=== PATIENT | female | born 1965 | race Caucasian/White ===

== ENCOUNTER → 2019-05-11 14:04 | Outpatient (CLI) | payer OTHER, SELFPAY ==
--- NOTE | ~2019-05-11 | DEXA_ITS ---
Bone Density Report Name: Vivian Marcos Age: 53 Sex: Female Ethnicity: White Date of : 1965 Indication: postmenopausal; screening for osteoporosis; Referring Provider: Mathieu, Verna Study: Bone densitometry was performed. Exam Date: May 11, 2019 Accession number: [id number] Bone Density: Region BMD T-score Z-score Classification AP Spine (L1-L4) 1.169 1.1 2.0 Normal Femoral Neck (Left) 0.857 0.1 0.9 Normal Total Hip (Left) 1.013 0.6 1.1 Normal Femoral Neck (Right) 0.838 -0.1 0.8 Normal Total Hip (Right) 0.974 0.3 0.8 Normal Total Hip Mean 0.994 0.5 1.0 Normal World Health Organization criteria for BMD impression classify patients as: Normal (T-score at or above -1.0), Osteopenia (T-score between -1.0 and -2.5), or Osteoporosis (T-score at or below -2.5). 10-year Fracture Risk: FRAX not reported because: All T-scores for Spine Total, Hip Total, Femoral Neck at or above -1.0 Clinical Information Provided by Patient: Has used the following medications: Vitamin D Patient maximum height was 62.25 Menopause Age: 42 Drinks caffeinated beverages Onset of menses at age 15 Number of children 2 Impression: The patient has normal bone mass. Discussion: BONE DENSITY IS ABOVE THE MINIMUM DESIRABLE LEVEL AT ALL SKELETAL SITES TESTED. This patient?s bone mineral density is above the minimum desirable level (T-score -1.0 or better) at all sites measured. The patient should follow a healthful lifestyle (good nutrition with adequate calcium and vitamin D, and appropriate weight-bearing exercise). Follow-Up: Consider repeating this study in 5 years or sooner if there is some new clinical indication. Reported by: IGNACIO on 05/11/2019 2:49:00 PM. Reviewed, dictated and finalized at location A. [facility]
--- NOTE | ~2019-05-11 | MM_ITS ---
EXAMINATION: MM screening wes BI w lori HISTORY: Screening mammogram TECHNIQUE: Craniocaudal and mediolateral oblique 3-D tomosynthesis images were obtained and synthetic 2-D images were generated. CAD analysis was submitted and interpreted. COMPARISON: 02/06/2018 BREAST PARENCHYMAL COMPOSITION: There are scattered areas of fibroglandular density. FINDINGS: There is no evidence of suspicious mass, calcification, or architectural distortion to sugg est malignancy in either breast. There has been no suspicious interval change. IMPRESSION: 1. No mammographic evidence of malignancy. 2. Recommend routine screening mammography in one year. BI-RADS Category 1: Negative Reviewed, dictated and finalized at location A.
== END ==
PROVIDERS: PCP Family Medicine; Visit Provider Nurse Practitioner Family
DX: Z12.31 Encounter for screening mammogram for malignant neoplasm of breast (principal); Z78.0 Asymptomatic menopausal state
CPT/HCPCS: 77063; 77067; 77080

== ENCOUNTER 2019-12-21 06:44 | Outpatient (NON) | payer OTHER, SELFPAY ==
[2019-12-21 17:45] LABS: SARS-CoV-2 RNA PCR Positive
== END 2019-12-21 06:45 ==
PROVIDERS: PCP Family Medicine; Visit Provider Family Medicine
DX: U07.1 COVID-19 (principal)
CPT/HCPCS: 87635; C9803; U0003

== ENCOUNTER → 2020-06-05 10:38 | Outpatient (CLI) | payer OTHER, SELFPAY ==
--- NOTE | ~2020-06-05 | MM_ITS ---
EXAMINATION: MM screening wes BI w lori HISTORY: Screening mammogram TECHNIQUE: Craniocaudal and mediolateral oblique 3-D tomosynthesis images were obtained and synthetic 2-D images were generated. CAD analysis was submitted and interpreted. COMPARISON: 05/11/2019 bilateral digital screening mammogram 02/06/2018 bilateral diagnostic digital mammogram and complete bilateral breast ultrasound examinatio n BREAST PARENCHYMAL COMPOSITION: There are scattered areas of fibroglandular density. FINDINGS: There is no evidence of suspicious mass, calcification, or architectural distortion to sugg est malignancy in either breast. There has been no suspicious interval change. IMPRESSION: 1. No mammographic evidence of malignancy. 2. Recommend routine screening mammography in one year. BI-RADS Category 1: Negative Reviewed, dictated and finalized at location A.
== END ==
PROVIDERS: Visit Provider Obstetrics & Gynecology Gynecology
DX: Z12.31 Encounter for screening mammogram for malignant neoplasm of breast (principal)
CPT/HCPCS: 77063; 77067

== ENCOUNTER → 2020-10-16 13:22 | Outpatient (CLI) | payer OTHER, SELFPAY ==
--- NOTE | ~2020-10-16 | US_ITS ---
EXAMINATION: US pelvic complete DATE: 10/16/2020 13:42 INDICATION: Pelvic pain Comparison:Ultrasound dated 03/20/2018 TECHNIQUE: Multiple transabdominal and endovaginal sonographic images of the pelvis performed. FINDINGS: The uterus measures 11.2 x 3 x 5.8 cm. The endometrial complex measures 4 mm. The right ovary measures 4.3 x 2.2 x 2.3 cm and the left ovary measures 2.7 x 1.4 x 2.7 cm. There ar e small follicles in each ovary. Normal doppler signal in both ovaries. There is no free fluid in the pelvis. There are no abnormal masses seen on either side. IMPRESSION: 1. Unremarkable pelvic ultrasound. Reviewed, dictated and finalized at location A.
== END ==
PROVIDERS: Visit Provider Nurse Practitioner
DX: R10.2 Pelvic and perineal pain (principal)
CPT/HCPCS: 76856

== ENCOUNTER → 2021-12-28 16:06 | Outpatient (CLI) | payer OTHER, SELFPAY ==
--- NOTE | ~2021-12-28 | MM_ITS ---
EXAMINATION: MM screening [facility] BI w lori HISTORY: Screening TECHNIQUE: Craniocaudal and mediolateral oblique 3-D tomosynthesis images were obtained and synthetic 2-D images were generated. CAD analysis was submitted and interpreted. COMPARISON: Comparison to multiple prior studies sequentially, with oldest reviewed study dated 01/28. BREAST PARENCHYMAL COMPOSITION: There are scattered areas of fibroglandular density. FINDINGS: There is no evidence of suspicious mass, calcification, or architectural distortion to sugg est malignancy in either breast. There has been no suspicious interval change. IMPRESSION: 1. No mammographic evidence of malignancy. 2. Recommend routine screening mammography in one year. BI-RADS Category 1: Negative Reviewed, dictated and finalized at location A.
== END ==
PROVIDERS: PCP Nurse Practitioner Family; Visit Provider Obstetrics & Gynecology Gynecology
DX: Z12.31 Encounter for screening mammogram for malignant neoplasm of breast (principal)
CPT/HCPCS: 77063; 77067

== ENCOUNTER 2022-03-16 12:43 | Outpatient (CLI) | payer OTHER, SELFPAY | END 2022-03-16 12:44 | disposition home or self-care (01) | LOC: ANHBWCAUD 12:44 | PROVIDERS: PCP Nurse Practitioner Family; Visit Provider Otolaryngology | DX: H93.13 Tinnitus, bilateral (principal); H91.93 Unspecified hearing loss, bilateral; H81.09 Meniere's disease, unspecified ear | CPT/HCPCS: 92557; 92567 ==

== ENCOUNTER 2023-10-11 07:21 | Outpatient (CLI) | payer OTHER, SELFPAY ==
--- NOTE | ~2023-10-11 | MM_ITS ---
EXAMINATION: MM screening wes BI w lori HISTORY: Screening TECHNIQUE: Craniocaudal and mediolateral oblique 3-D tomosynthesis images were obtained and synthetic 2-D images were generated. CAD analysis was submitted and interpreted. COMPARISON: Comparison to multiple prior studies sequentially, with oldest reviewed study dated 01/28. BREAST PARENCHYMAL COMPOSITION: Not dense: There are scattered areas of fibroglandular density. FINDINGS: There is no evidence of suspicious mass, calcification, or architectural distortion to sugg est malignancy in either breast. There has been no suspicious interval change. IMPRESSION: 1. No mammographic evidence of malignancy. 2. Recommend routine screening mammography in one year. BI-RADS Category 1: Negative Reviewed, dictated and finalized at location B.
== END 2023-10-11 07:22 ==
LOC: MICIMG 07:23
PROVIDERS: PCP Nurse Practitioner Family; Visit Provider Nurse Practitioner Family
DX: Z12.31 Encounter for screening mammogram for malignant neoplasm of breast (principal)
CPT/HCPCS: 77063; 77067

== ENCOUNTER 2025-02-26 16:01 | Outpatient (CLI) | payer OTHER, SELFPAY ==
--- NOTE | ~2025-02-26 | MM_ITS ---
EXAMINATION: MM screening wes BI w lori HISTORY: Screening TECHNIQUE: Craniocaudal and mediolateral oblique 3-D tomosynthesis images were obtained and synthetic 2-D images were generated. CAD analysis was submitted and interpreted. COMPARISON: 2023, 2021, and 2020 BREAST PARENCHYMAL COMPOSITION: There are scattered areas of fibroglandular tissue. FINDINGS: No suspicious masses are seen. There are no suspicious calcifications. No unexplained architectural distortion is seen. There are no skin or nipple abnormalities identified. There is no adenopathy seen on the images submitted. IMPRESSION: No mammographic evidence to suggest malignancy is seen. The patient may return to screening mammography as per ACR guidelines. BI-RADS 1 - Negative. Reviewed, dictated and finalized at location C. [facility]
--- OUTSIDE RECORDS SUMMARY | 2025-02-26 16:07 | XMS_ITS | Clinical Summary ---
Author Organization [facility] Address [address] [place] [address] Care Team Providers Care Table Games Dealer Name Role Phone Tong Mendoza NP Primary Care Provider [phone] Allergies Active Allergy Reactions Criticality Noted Date Comments Penicillins Rash Medium 01/16/2015 Medications escitalopram (LEXAPRO) 10 mg tablet Take 10 mg by mouth daily 1 Active fluticasone propionate (FLONASE) 50 mcg/actuation nasal sprayIndications :Dysfunction of both eustachian tubes Administer 2 sprays into each nostril daily 16 g 11 1 Active buPROPion XL (WELLBUTRIN XL) 150 mg 24 hr tablet bupropion HCl XL 150 mg 24 hr tablet, extended release Active omeprazole (PriLOSEC) 40 mg capsuleIndicatio ns:Gastroesophag eal reflux disease with esophagitis, unspecified whether hemorrhage TAKE 1 CAPSULE BY MOUTH EVERY DAY 90 capsule 3 4 Active Active Problems Problem Noted Date Diagnosed Date Dysfunction of both eustachian tubes 05/14/2020 Assessment & Plan (05/14/2020 3:55 PM CDT): Avoid ear cleaning techniques Avoid water to ears Flonase 2 sprays into each nostril while looking down over the sink, do not sniff in or blow nose after use for at least 30 minutes daily Hearing test- [facility] Ibuprofen 600 mg 30 minutes prior to flight Bilateral impacted cerumen 05/14/2020 Assessment & Plan (05/14/2020 9:22 PM CDT): Avoid ear cleaning techniques Avoid water to ears [facility] 01/30/2020 Gastroesophageal reflux disease with esophagitis 01/16/2020 Overview (01/16/2020): Added automatically from request for surgery [id number] Acute sinusitis 01/14/2020 Anemia 01/14/2020 Other chest pain 01/14/2020 Gastroesophageal reflux disease 01/14/2020 Assessment & Plan (01/14/2020 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 -Discussed GERD diet and she was given handout of details on this. -Will schedule EGD. Wheezing 01/14/2020 Vertigo 01/14/2020 Patient currently 01/14/2020 Other malaise and fatigue 01/14/2020 Major depressive disorder, recurrent episode, mo derate 01/14/2020 Dyspepsia 01/14/2020 BMI 27.0-27.9,adult 01/14/2020 Adhesive capsulitis of left shoulder 09/21/2017 Anxiety 09/21/2017 Mixed anxiety and depressive disorder 09/21/2017 Rhinitis, allergic 09/21/2017 Mass of breast 02/16/2015 Surgical History Surgery Date Site/Laterality Comments TONSILLECTOMY Tonsillectomy+Adenoid SECTION section CHOLECYSTECTOMY Medical History Medical History Date Comments Depression Depression Cancer (HCC) Ovarian cyst Allergic rhinitis Anxiety HL (hearing loss) Family History Medical History Relation Name Comments Other Father Alive and well; Cancer Maternal Grandmother Other Mother Alive and well; Relation Name Status Comments Father Alive Maternal Grandmother Mother Alive Social History Tobacco Use Types Packs/Day Years Used Date Smoking Tobacco: Never Smokeless Tobacco: Never Alcohol Use Standard Drinks/Week Comments No 0 (1 standard drink = 0.6 oz pur e alcohol) Comments No Sex and Gender Information Value Date Recorded Sex Assigned at Not on file Legal Sex Female 11:49 PM 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 HELPER Gender Identity Not on file Sexual Orientation Not on file Last Filed Vital Signs Vital Sign Reading Time Taken Comments Blood Pressure 113/72 06/02/2021 11:46 AM CDT Pulse 69 06/02/2021 11:46 AM CDT Temperature 36.1 C (96.9 F) 05/14/2020 3:28 PM CDT Respiratory Rate 18 03/25/2020 1:35 PM LINER 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 HELPER Oxygen Saturation 99% 03/25/2020 1:35 PM LINER 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 HELPER Inhaled Oxygen Concentration - - Weight 70.3 kg (155 lb) 06/02/2021 11:46 AM CDT Height 157.5 cm (5' 2) 06/02/2021 11:46 AM CDT Body Mass Index 28.35 06/02/2021 11:46 AM CDT Plan of Treatment Not on file Insurance [facility] Address: [place] [address] [facility] Address: [address] [address] [place] [address] [facility] [employer] Address: [place] [address] Advance Directives For more information, please contact: [phone] * Full Code (Latest Code Status on File) Date Activated Date Inactivated Comments 03/25/2020 11:11 AM 03/25/2020 5:56 PM * Full Code Date Activated Date Inactivated Comments 03/25/2020 11:11 AM 03/25/2020 11:11 AM Care Teams Table Games Dealer Relationship Specialty Start Date End Date Tong Mendoza NP PCP - General Internal Medicine 01/14/20
--- OUTSIDE RECORDS SUMMARY | 2025-02-26 16:07 | XMS_ITS | Clinical Summary ---
Author Organization [facility] Address [address] [place] [address] Phone Care Team Providers Care Trouble Shooter Name Role Phone Provider, None Primary Care Provider Unavailabl e Allergies Active Allergy Reactions Criticality Noted Date Comments Penicillins Rash 01/16/2015 Medications fluticasone (FLONASE) 50 MCG/ACT Suspension INHALE TWO SPRAYS IN EACH NOSTRIL DAILY 1 Bottle 2 6 Active citalopram (CELEXA) 20 MG TabletIndicatio ns:Anxiety Take 1 Tab by mouth daily. 90 Tab 1 6 Active Dextromethorpha n-Guaifenesin (MUCINEX DM PO) Take by mouth as needed. Active promethazine-de xtromethorphan (PROMETHAZINE-D M) 6.25-15 MG/5ML Syrup Take 5 mL by mouth every 4 hours as needed for Cough. 240 mL 8 Active Additional Information Patient not taking.Reported on 03/06/2019 Active Problems Problem Noted Date Diagnosed Date Anxiety Rhinitis, allergic Depression Family History Medical History Relation Name Comments Osteoarthritis Mother Relation Name Status Comments Mother Alive Social History Tobacco Use Types Packs/Day Years Used Date Smoking Tobacco: Never Smokeless Tobacco: Never Alcohol Use Standard Drinks/Week Comments Yes 2 (1 standard drink = 0.6 oz pur e alcohol) Sexually Active Control Partners Comments Yes Comments No Sex and Gender Information Value Date Recorded Sex Assigned at Not on file Legal Sex Female 10:25 PM CDT Gender Identity Not on file Sexual Orientation Not on file Last Filed Vital Signs Vital Sign Reading Time Taken Comments Blood Pressure 108/64 03/06/2019 10:16 AM CHROME PLATER HELPER Pulse 86 03/06/2019 10:16 AM CHROME PLATER HELPER Temperature 36.7 C (98 F) 03/06/2019 10:16 AM CHROME PLATER HELPER Respiratory Rate 14 02/28/2017 11:36 AM CHROME PLATER HELPER Oxygen Saturation 98% 03/06/2019 10:16 AM CHROME PLATER HELPER Inhaled Oxygen Concentration - - Weight 65.8 kg (145 lb) 03/06/2019 10:16 AM CHROME PLATER HELPER Height 157.5 cm (5' 2) 03/06/2019 10:16 AM CHROME PLATER HELPER Body Mass Index 26.52 03/06/2019 10:16 AM CHROME PLATER HELPER Plan of Treatment Health Maintenance Due Date Last Done Comments Hepatitis C Virus (HCV) Screening 1965 Hepatitis B Immunization (1 of 3 - 19+ 3-dose series) 06/27/1986 Pap Smear 06/27/1988 Cervical Cancer Screening (CCS) 06/27/1997 HPV/Cotest 06/27/1997 Cologuard 06/27/2012 Colonoscopy 06/27/2012 Colorectal Cancer Screening 06/27/2012 Immunochemical Fecal Occult Blood 06/27/2012 Pneumococcal Immunization (50+ years) (1 of 1 - PCV) 06/27/2017 Zoster Immunization (1 of 2) 06/27/2017 Influenza Immunization (#1) 10/29/202403/2018, 12/29/2017, 12/07/2016, Additional history exists SARS-COV-2 Immunization (2 - 2024- season) 2024 06/08/2020 Respiratory Syncytial Virus (RSV) Immunization (Adult) (1 - 1-dose 75+ series) 06/27/2042 DTaP/Tdap/Td Immunization Discontinued 06/08/2017 TdaP Immunization Completed 06/08/2017 Human Papillomavirus (HPV) Immunization (No Doses Required) Completed Meningococcal Immunization (ACWY) Aged Out No longer eligible based on patient's age to complete this topic Rotavirus Immunization Aged Out No lo nger eligible based on patient's age to complete this topic Care Teams Trouble Shooter Relationship Specialty Start Date End Date Provider, None [place] PCP - General 08/14/20
== END 2025-02-26 16:02 | disposition home or self-care (01) ==
LOC: ANHFOHIMG 16:05
PROVIDERS: PCP Nurse Practitioner Family; Visit Provider Obstetrics & Gynecology Gynecology
DX: Z12.31 Encounter for screening mammogram for malignant neoplasm of breast (principal)
CPT/HCPCS: 77063; 77067